=== PATIENT | female | born 1955 | race African-American/Black ===

== ENCOUNTER 2019-03-04 21:41 | Inpatient (IN) | payer MEDICAID ==
[~2019-03-04] VITALS: Ht 177.8 cm; Wt 145.1 kg
[~2019-03-04 21:41] MED LIST: ALBU2.5V13 IH; ALLO100T PO; AMLO5TAB4 PO; BACI500P7 TP; CYCL5TAB PO; FURO40TA5 PO; METH2.5T PO; METO25TA6 PO; OMEP40CA34 PO; OXYB5TAB11 PO; PRAV40TA58 PO; TRAM50TA3 PO; amiodarone hcl PO
[2019-03-04] MEDS ORDERED: IPRATROPIUM BROMIDE (0.02%) 0.5MG/2.5ML NEB HHN STA (22:19)
[2019-03-04] MEDS ORDERED: ALBUTEROL (0.083%) 2.5MG/3ML NEB HHN STA (22:19)
[2019-03-04] MEDS ORDERED: FUROSEMIDE 40MG/4ML VIAL IVP ONE (22:30)
[2019-03-04 23:16] LABS: BASOPHILS % 0.5 % (0.0-2.0); EOSINOPHILS % 2.2 % (0.0-5.0); HEMATOCRIT. 27.1 % (36.0-48.0); HEMOGLOBIN. 8.9 g/dL (12.0-16.0); LYMPHOCYTES % 23.1 % (20.0-50.0); MEAN CORPUSCULAR HEMOGLOBIN 28.5 pg (28.0-32.0); MEAN CORPUSCULAR VOLUME 86.8 fL (81.0-99.0); MEAN PLATELET VOLUME 6.9 fl (7.4-10.4); MONOCYTES % 6.6 % (2.0-8.0); NEUTROPHILS % 67.6 % (40.0-76.0); PLATELET 188 x1000/uL (130-400); RED BLOOD CELL COUNT 3.12 mill/uL (4.2-5.4); RED CELL DISTRIBUTION WIDTH 16.3 % (11.6-14.6)
[2019-03-04 23:17] LABS: CHLORIDE 100 mEq/L (98-107)
[2019-03-04 23:48] LABS: CLARITY URINE CLEAR (CLEAR); COLOR URINE YELLOW (YELLOW); KETONES URINE NEGATIVE (NEGATIVE); LEUKOCYTE ESTERASE URINE NEGATIVE (NEGATIVE); NITRITE URINE NEGATIVE (NEGATIVE); OCCULT BLOOD URINE NEGATIVE (NEGATIVE); PROTEIN URINE NEGATIVE (NEGATIVE); SPECIFIC GRAVITY URINE 1.009 (1.005-1.030); UROBILINOGEN URINE 0.2 E.U./dL (0.2-1.0)
[2019-03-05 02:50] VITALS: BP 125/47
[2019-03-05] MEDS ORDERED: METO5TAB69 MT (04:51)
[2019-03-05] MEDS ORDERED: CLOP75TA33 MT (04:51)
[2019-03-05] MEDS ORDERED: BACL-141 MT (04:51)
[2019-03-05] MEDS ORDERED: CARV6.2548 MT (04:51)
[2019-03-05] MEDS ORDERED: CIME400T MT (04:51)
[2019-03-05] MEDS ORDERED: CLONIDINE 0.1MG TABLET PO PRN ×2 (06:00→06:15)
[2019-03-05] MEDS ORDERED: ONDANSETRON HCL 4MG/2ML INJ IV PRN (06:00)
[2019-03-05 08:00] VITALS: BP 112/55
[2019-03-05] MEDS ORDERED: FUROSEMIDE 40MG/4ML VIAL IVP SCH (09:00)
[2019-03-05] MEDS ORDERED: CIMETIDINE MT SCH (09:00)
[2019-03-05] MEDS: AMLODIPINE 5MG TABLET PO SCH (09:00)
[2019-03-05] MEDS: CARVEDILOL 6.25 MG TABLET PO SCH ×2 (09:00→21:00)
[2019-03-05] MEDS ORDERED: METOLAZONE MT SCH (09:00)
[2019-03-05] MEDS: OXYBUTYNIN CHLORIDE 5MG TABLET PO SCH (09:24)
[2019-03-05] MEDS: BACLOFEN 10MG TABLET PO SCH (09:24)
[2019-03-05] MEDS: FAMOTIDINE 20MG TABLET PO SCH (09:24)
[2019-03-05] MEDS: CLOPIDOGREL 75MG TABLET PO SCH (09:24)
[2019-03-05 10:48] LABS: BASOPHILS % 0.5 % (0.0-2.0); EOSINOPHILS % 2.1 % (0.0-5.0); HEMATOCRIT. 27.3 % (36.0-48.0); HEMOGLOBIN. 8.8 g/dL (12.0-16.0); LYMPHOCYTES % 23.3 % (20.0-50.0); MEAN CORPUSCULAR HEMOGLOBIN 28.2 pg (28.0-32.0); MEAN CORPUSCULAR VOLUME 87.5 fL (81.0-99.0); NEUTROPHILS % 69.1 % (40.0-76.0); PLATELET 159 x1000/uL (130-400); RED BLOOD CELL COUNT 3.12 mill/uL (4.2-5.4); RED CELL DISTRIBUTION WIDTH 15.9 % (11.6-14.6)
[2019-03-05 11:24] LABS: CREATINE KINASE MB FRACTION 1.2 ng/mL (0.5-3.6)
[2019-03-05 12:00] VITALS: BP 113/52
[2019-03-05] MEDS: ACETAMINOPHEN 325MG TABLET PO PRN ×2 (12:10→18:17)
[2019-03-05 16:00] VITALS: BP 105/55
[2019-03-05] MEDS: ALBUTEROL (0.083%) 2.5MG/3ML NEB HHN SCH ×2 (17:42→19:46)
[2019-03-05 20:00] VITALS: BP 110/44
[2019-03-05] MEDS ORDERED: EPOETIN ALFA 10000UNITS/ML VIAL SUBCUT NR (21:00)
[2019-03-05] MEDS: FUROSEMIDE 40MG/4ML VIAL IVP SCH (22:33)
[2019-03-06] VITALS: BP 109/51
[2019-03-06] MEDS: HYDROCODONE/ACETAMINOPHEN 5/325MG TABLET PO PRN ×3 (02:31→21:41)
[2019-03-06 04:00] VITALS: BP 104/49
[2019-03-06 06:42] LABS: BASOPHILS % 0.2 % (0.0-2.0); EOSINOPHILS % 2.3 % (0.0-5.0); HEMATOCRIT. 25.1 % (36.0-48.0); HEMOGLOBIN. 8.5 g/dL (12.0-16.0); LYMPHOCYTES % 29.9 % (20.0-50.0); MEAN CORPUSCULAR HEMOGLOBIN 29.3 pg (28.0-32.0); MEAN CORPUSCULAR VOLUME 86.5 fL (81.0-99.0); MEAN PLATELET VOLUME 7.4 fl (7.4-10.4); MONOCYTES % 6.2 % (2.0-8.0); NEUTROPHILS % 61.4 % (40.0-76.0); PLATELET 165 x1000/uL (130-400); RED BLOOD CELL COUNT 2.91 mill/uL (4.2-5.4); RED CELL DISTRIBUTION WIDTH 15.4 % (11.6-14.6)
[2019-03-06 08:00] VITALS: BP 105/49
[2019-03-06] MEDS: CARVEDILOL 6.25 MG TABLET PO SCH ×2 (09:00→21:00)
[2019-03-06] MEDS: AMLODIPINE 5MG TABLET PO SCH (09:00)
[2019-03-06] MEDS: ALBUTEROL (0.083%) 2.5MG/3ML NEB HHN SCH ×5 (09:14→21:00)
[2019-03-06] MEDS: FUROSEMIDE 40MG/4ML VIAL IVP SCH ×2 (09:53→21:32)
[2019-03-06] MEDS: FAMOTIDINE 20MG TABLET PO SCH (09:54)
[2019-03-06] MEDS: BACLOFEN 10MG TABLET PO SCH (09:54)
[2019-03-06] MEDS: OXYBUTYNIN CHLORIDE 5MG TABLET PO SCH (09:54)
[2019-03-06] MEDS: CLOPIDOGREL 75MG TABLET PO SCH (09:54)
[2019-03-06] MEDS: METOLAZONE 5MG TABLET PO SCH (09:54)
[2019-03-06 12:00] VITALS: BP 103/52
[2019-03-06] MEDS: AMOXICILLIN/POTASSIUM CLAVULANATE 500/125MG TAB PO SCH (15:16)
[2019-03-06 16:00] VITALS: BP 103/52
[2019-03-06 20:00] VITALS: BP 94/46
[2019-03-06] MEDS: FLUTICASONE PROPIONATE 50MCG/SPRAY BOTTLE BOTHNSTRLS SCH (21:32)
[2019-03-07] VITALS: BP 108/54
[2019-03-07 04:00] VITALS: BP 113/49
[2019-03-07] MEDS: HYDROCODONE/ACETAMINOPHEN 5/325MG TABLET PO PRN ×2 (06:02→21:02)
[2019-03-07 06:49] LABS: BASOPHILS % 0.4 % (0.0-2.0); EOSINOPHILS % 2.7 % (0.0-5.0); HEMATOCRIT. 26.2 % (36.0-48.0); HEMOGLOBIN. 8.6 g/dL (12.0-16.0); LYMPHOCYTES % 27.4 % (20.0-50.0); MEAN CORPUSCULAR HEMOGLOBIN 28.4 pg (28.0-32.0); MEAN CORPUSCULAR VOLUME 86.6 fL (81.0-99.0); MONOCYTES % 6.8 % (2.0-8.0); NEUTROPHILS % 62.7 % (40.0-76.0); PLATELET 175 x1000/uL (130-400); RED BLOOD CELL COUNT 3.02 mill/uL (4.2-5.4); RED CELL DISTRIBUTION WIDTH 15.6 % (11.6-14.6)
[2019-03-07 08:00] VITALS: BP 104/43
[2019-03-07] MEDS: AMLODIPINE 5MG TABLET PO SCH (09:00)
[2019-03-07] MEDS: CARVEDILOL 6.25 MG TABLET PO SCH ×2 (09:00→21:00)
[2019-03-07] MEDS: ALBUTEROL (0.083%) 2.5MG/3ML NEB HHN SCH ×3 (09:16→21:03)
[2019-03-07] MEDS: CLOPIDOGREL 75MG TABLET PO SCH (09:30)
[2019-03-07] MEDS: FAMOTIDINE 20MG TABLET PO SCH (09:30)
[2019-03-07] MEDS: OXYBUTYNIN CHLORIDE 5MG TABLET PO SCH (09:31)
[2019-03-07] MEDS: FUROSEMIDE 40MG/4ML VIAL IVP SCH ×2 (09:32→21:02)
[2019-03-07] MEDS: AMOXICILLIN/POTASSIUM CLAVULANATE 500/125MG TAB PO SCH (09:32)
[2019-03-07 10:45] LABS: PHOSPHORUS 5.2 mg/dL (2.5-4.9)
[2019-03-07 12:22] VITALS: BP 110/45
[2019-03-07] MEDS: FLUTICASONE PROPIONATE 50MCG/SPRAY BOTTLE BOTHNSTRLS SCH ×2 (13:58→21:07)
[2019-03-07] MEDS: ACETAMINOPHEN 325MG TABLET PO PRN (15:18)
[2019-03-07 16:52] VITALS: BP 102/43
[2019-03-07 20:00] VITALS: BP 113/58
[2019-03-08] VITALS (7 sets, daily range): BP systolic 108–141; BP diastolic 43–65
[2019-03-08] MEDS: HYDROCODONE/ACETAMINOPHEN 5/325MG TABLET PO PRN ×3 (04:58→23:01)
[2019-03-08 08:12] LABS: BASOPHILS % 0.4 % (0.0-2.0); EOSINOPHILS % 2.5 % (0.0-5.0); HEMATOCRIT. 28.1 % (36.0-48.0); HEMOGLOBIN. 9.1 g/dL (12.0-16.0); LYMPHOCYTES % 25.7 % (20.0-50.0); MEAN CORPUSCULAR HEMOGLOBIN 28.1 pg (28.0-32.0); MEAN CORPUSCULAR VOLUME 86.6 fL (81.0-99.0); MEAN PLATELET VOLUME 7.3 fl (7.4-10.4); NEUTROPHILS % 65.4 % (40.0-76.0); PLATELET 195 x1000/uL (130-400); RED BLOOD CELL COUNT 3.25 mill/uL (4.2-5.4); RED CELL DISTRIBUTION WIDTH 15.9 % (11.6-14.6)
[2019-03-08] MEDS: ALBUTEROL (0.083%) 2.5MG/3ML NEB HHN SCH ×4 (08:35→20:39)
[2019-03-08] MEDS: FUROSEMIDE 40MG/4ML VIAL IVP SCH (08:55)
[2019-03-08] MEDS: METOLAZONE 5MG TABLET PO SCH (08:56)
[2019-03-08] MEDS: AMOXICILLIN/POTASSIUM CLAVULANATE 500/125MG TAB PO SCH (08:56)
[2019-03-08] MEDS: CLOPIDOGREL 75MG TABLET PO SCH (08:59)
[2019-03-08] MEDS: CARVEDILOL 6.25 MG TABLET PO SCH ×2 (08:59→21:04)
[2019-03-08] MEDS: OXYBUTYNIN CHLORIDE 5MG TABLET PO SCH (08:59)
[2019-03-08] MEDS: AMLODIPINE 5MG TABLET PO SCH (09:00)
[2019-03-08] MEDS: FLUTICASONE PROPIONATE 50MCG/SPRAY BOTTLE BOTHNSTRLS SCH ×2 (09:00→21:04)
[2019-03-08] MEDS: FAMOTIDINE 20MG TABLET PO SCH (09:04)
[2019-03-08] MEDS: FUROSEMIDE 40MG TABLET PO SCH (18:16)
[2019-03-09 00:08] VITALS: BP 115/52
[2019-03-09 04:00] VITALS: BP 104/50
[2019-03-09 05:55] LABS: PHOSPHORUS 5.4 mg/dL (2.5-4.9)
[2019-03-09 06:15] LABS: BASOPHILS % 0.3 % (0.0-2.0); EOSINOPHILS % 2.7 % (0.0-5.0); HEMATOCRIT. 28.9 % (36.0-48.0); HEMOGLOBIN. 9.4 g/dL (12.0-16.0); LYMPHOCYTES % 26.1 % (20.0-50.0); MEAN CORPUSCULAR HEMOGLOBIN 28.3 pg (28.0-32.0); MEAN PLATELET VOLUME 7.5 fl (7.4-10.4); NEUTROPHILS % 63.9 % (40.0-76.0); PLATELET 199 x1000/uL (130-400); RED BLOOD CELL COUNT 3.32 mill/uL (4.2-5.4); RED CELL DISTRIBUTION WIDTH 15.7 % (11.6-14.6)
[2019-03-09 08:00] VITALS: BP 100/53
[2019-03-09] MEDS: CARVEDILOL 6.25 MG TABLET PO SCH (09:00)
[2019-03-09] MEDS: AMLODIPINE 5MG TABLET PO SCH (09:00)
[2019-03-09] MEDS: OXYBUTYNIN CHLORIDE 5MG TABLET PO SCH (09:35)
[2019-03-09] MEDS: FLUTICASONE PROPIONATE 50MCG/SPRAY BOTTLE BOTHNSTRLS SCH (09:35)
[2019-03-09] MEDS: METOLAZONE 5MG TABLET PO SCH (09:35)
[2019-03-09] MEDS: CLOPIDOGREL 75MG TABLET PO SCH (09:35)
[2019-03-09] MEDS: AMOXICILLIN/POTASSIUM CLAVULANATE 500/125MG TAB PO SCH (09:35)
[2019-03-09] MEDS: FUROSEMIDE 40MG TABLET PO SCH (09:36)
[2019-03-09] MEDS: FAMOTIDINE 20MG TABLET PO SCH (09:36)
[2019-03-09 10:18] VITALS: BP 100/53
[2019-03-09] MEDS: HYDROCODONE/ACETAMINOPHEN 5/325MG TABLET PO PRN (10:18)
[2019-03-09] MEDS: ALBUTEROL (0.083%) 2.5MG/3ML NEB HHN SCH (10:35)
== END 2019-03-09 10:41 | disposition home or self-care (01) | DRG 133 ==
LOC: ER 21:41 → 7WST 23:52 → EDBEDREQ 23:57 → EDBEDREQTM 23:57 → ENRESERV 03-05 01:38
PROVIDERS: ADMIT Internal Medicine; ATTEND Internal Medicine
DX: J96.91 Respiratory failure, unspecified with hypoxia (principal); I13.2 Hypertensive heart and chronic kidney disease with heart failure and with stage 5 chronic kidney disease, or end stage renal disease; N17.9 Acute kidney failure, unspecified; I27.20 Pulmonary hypertension, unspecified; N18.5 Chronic kidney disease, stage 5; Z68.42 Body mass index [BMI] 45.0-49.9, adult; I50.33 Acute on chronic diastolic (congestive) heart failure; R07.9 Chest pain, unspecified; R51 Headache; M06.9 Rheumatoid arthritis, unspecified; I25.10 Atherosclerotic heart disease of native coronary artery without angina pectoris; J45.909 Unspecified asthma, uncomplicated; E78.5 Hyperlipidemia, unspecified; J32.9 Chronic sinusitis, unspecified; Z95.2 Presence of prosthetic heart valve; D64.9 Anemia, unspecified; Z86.718 Personal history of other venous thrombosis and embolism; I25.2 Old myocardial infarction; Z95.828 Presence of other vascular implants and grafts; Z82.49 Family history of ischemic heart disease and other diseases of the circulatory system; Z90.49 Acquired absence of other specified parts of digestive tract; Z88.5 Allergy status to narcotic agent; Z79.899 Other long term (current) drug therapy
CPT/HCPCS: 36415; 71045; 76770; 80048; 81003; 82270; 82550; 82553; 83735; 83880; 84100; 84484; 93005; 94640; 94644; 96374; 97162; 99285; J0885; J1940; J7611

== ENCOUNTER 2019-04-01 21:10 | Inpatient (IN) | payer MEDICAID ==
[~2019-04-01] VITALS: Ht 190.5 cm; Wt 139.3 kg
[~2019-04-01 21:10] MED LIST changes: -ALLO100T PO; -BACI500P7 TP; +BACL-141 MT; +CARV6.2548 MT; +CIME400T MT; +CLOP75TA33 MT; -CYCL5TAB PO; -METH2.5T PO; -METO25TA6 PO; +METO5TAB69 MT; -OMEP40CA34 PO; -PRAV40TA58 PO; -TRAM50TA3 PO; -amiodarone hcl PO
[2019-04-01 22:54] LABS: BASOPHILS % 0.2 % (0.0-2.0); EOSINOPHILS % 1.3 % (0.0-5.0); HEMATOCRIT. 30.7 % (36.0-48.0); HEMOGLOBIN. 10.1 g/dL (12.0-16.0); LYMPHOCYTES % 18.5 % (20.0-50.0); MEAN CORPUSCULAR HEMOGLOBIN 28.7 pg (28.0-32.0); MEAN CORPUSCULAR VOLUME 87.2 fL (81.0-99.0); MEAN PLATELET VOLUME 6.7 fl (7.4-10.4); MONOCYTES % 5.7 % (2.0-8.0); NEUTROPHILS % 74.3 % (40.0-76.0); PLATELET 168 x1000/uL (130-400); RED BLOOD CELL COUNT 3.52 mill/uL (4.2-5.4); RED CELL DISTRIBUTION WIDTH 14.1 % (11.6-14.6)
[2019-04-01 23:19] LABS: PROTHROMBIN TIME 10.7 sec (9.6-11.0)
[2019-04-02 00:22] LABS: CHLORIDE 98 mEq/L (98-107)
[2019-04-02] MEDS ORDERED: ACETAMINOPHEN 500MG TABLET PO ONE (01:30)
[2019-04-02 07:30] VITALS: BP_SYST 112; BP_SYST 118; BP_DIAS 62; BP_DIAS 63
[2019-04-02] MEDS: HYDROCODONE/ACETAMINOPHEN 5/325MG TABLET PO PRN ×2 (10:11→21:13)
[2019-04-02] MEDS ORDERED: POTASSIUM CHLORIDE 20MEQ TABLET SR PO NR (10:45)
[2019-04-02] MEDS ORDERED: LIDOCAINE HCL 1% 20ML VIAL (Pyxis) INJ ONE (10:56)
[2019-04-02 12:00] VITALS: BP 118/55
[2019-04-02 16:00] VITALS: BP 120/64
[2019-04-02] MEDS ORDERED: ENOXAPARIN 30MG/0.3ML SYR SUBCUT SCH (16:00)
[2019-04-02 16:17] LABS: HEPATITIS B SURFACE AB < 3.1 mIU/mL
[2019-04-02 16:27] LABS: HEPATITIS B SURFACE ANTIGEN NEGATIVE
[2019-04-02 16:43] LABS: CLARITY URINE CLEAR (CLEAR); COLOR URINE YELLOW (YELLOW); KETONES URINE NEGATIVE (NEGATIVE); LEUKOCYTE ESTERASE URINE 1+ (NEGATIVE); NITRITE URINE NEGATIVE (NEGATIVE); OCCULT BLOOD URINE 1+ (NEGATIVE); PROTEIN URINE NEGATIVE (NEGATIVE); SPECIFIC GRAVITY URINE 1.009 (1.005-1.030); UROBILINOGEN URINE 0.2 E.U./dL (0.2-1.0)
[2019-04-02 16:57] LABS: HEPATITIS A AB IGM NEGATIVE (NEGATIVE)
[2019-04-02] MEDS: ONDANSETRON HCL 4MG/2ML INJ IV PRN (17:30)
[2019-04-02 20:00] VITALS: BP 116/60
[2019-04-03] VITALS: BP 129/61
[2019-04-03] MEDS: ONDANSETRON HCL 4MG/2ML INJ IV PRN ×3 (00:43→14:43)
[2019-04-03 04:00] VITALS: BP 127/59
[2019-04-03 07:52] LABS: BASOPHILS % 0.5 % (0.0-2.0); EOSINOPHILS % 1.9 % (0.0-5.0); HEMATOCRIT. 31.4 % (36.0-48.0); HEMOGLOBIN. 10.1 g/dL (12.0-16.0); MEAN CORPUSCULAR HEMOGLOBIN 28.7 pg (28.0-32.0); MEAN CORPUSCULAR VOLUME 89.1 fL (81.0-99.0); MEAN PLATELET VOLUME 6.6 fl (7.4-10.4); MONOCYTES % 5.7 % (2.0-8.0); NEUTROPHILS % 63.9 % (40.0-76.0); PLATELET 154 x1000/uL (130-400); RED BLOOD CELL COUNT 3.53 mill/uL (4.2-5.4); RED CELL DISTRIBUTION WIDTH 14.3 % (11.6-14.6)
[2019-04-03 08:00] VITALS: BP 123/91
[2019-04-03 08:50] LABS: PHOSPHORUS 4.7 mg/dL (2.5-4.9)
[2019-04-03 12:00] VITALS: BP 128/58
[2019-04-03 16:00] VITALS: BP 123/84
[2019-04-03 20:00] VITALS: BP 125/86
[2019-04-04] VITALS: BP 122/63
[2019-04-04] MEDS: HYDROCODONE/ACETAMINOPHEN 5/325MG TABLET PO PRN (02:27)
[2019-04-04 04:00] VITALS: BP 115/46
[2019-04-04 07:18] LABS: BASOPHILS % 0.4 % (0.0-2.0); EOSINOPHILS % 1.8 % (0.0-5.0); HEMATOCRIT. 30.7 % (36.0-48.0); HEMOGLOBIN. 9.9 g/dL (12.0-16.0); LYMPHOCYTES % 25.3 % (20.0-50.0); MEAN CORPUSCULAR HEMOGLOBIN 28.9 pg (28.0-32.0); MEAN CORPUSCULAR VOLUME 89.3 fL (81.0-99.0); MEAN PLATELET VOLUME 6.8 fl (7.4-10.4); MONOCYTES % 6.2 % (2.0-8.0); NEUTROPHILS % 66.3 % (40.0-76.0); PLATELET 151 x1000/uL (130-400); RED BLOOD CELL COUNT 3.44 mill/uL (4.2-5.4); RED CELL DISTRIBUTION WIDTH 14.2 % (11.6-14.6)
[2019-04-04 07:36] LABS: PHOSPHORUS 4.7 mg/dL (2.5-4.9)
[2019-04-04 08:00] VITALS: BP 152/72
[2019-04-04 12:00] VITALS: BP 122/69
[2019-04-04] MEDS: ONDANSETRON HCL 4MG/2ML INJ IV PRN (13:31)
[2019-04-04 16:00] VITALS: BP 119/66
[2019-04-04 20:00] VITALS: BP 137/73
[2019-04-04] MEDS ORDERED: LACTULOSE 20G/30ML UDC PO PRN (21:45)
[2019-04-04] MEDS ORDERED: MAGNESIUM/ALUMINUM HYDROXIDE/SIMETHICONE 30ML UDC PO PRN (21:45)
[2019-04-04] MEDS: LEVOFLOXACIN 250MG TABLET PO SCH (22:28)
[2019-04-05] VITALS: BP 119/57
[2019-04-05 04:00] VITALS: BP 118/60
[2019-04-05 07:24] LABS: BASOPHILS % 0.4 % (0.0-2.0); EOSINOPHILS % 1.6 % (0.0-5.0); HEMATOCRIT. 31.8 % (36.0-48.0); HEMOGLOBIN. 10.3 g/dL (12.0-16.0); LYMPHOCYTES % 22.2 % (20.0-50.0); MEAN CORPUSCULAR HEMOGLOBIN 28.6 pg (28.0-32.0); MEAN CORPUSCULAR VOLUME 88.4 fL (81.0-99.0); MEAN PLATELET VOLUME 6.8 fl (7.4-10.4); MONOCYTES % 5.6 % (2.0-8.0); NEUTROPHILS % 70.2 % (40.0-76.0); PLATELET 142 x1000/uL (130-400); RED CELL DISTRIBUTION WIDTH 13.9 % (11.6-14.6)
[2019-04-05 08:00] VITALS: BP 142/76
[2019-04-05] MEDS ORDERED: NITROFURANTOIN 100MG M/M CAPSULE PO SCH (09:00)
[2019-04-05] MEDS: LEVOFLOXACIN 250MG TABLET PO SCH (09:20)
[2019-04-05] MEDS ORDERED: FENTANYL CITRATE/PF 50MCG/ML 2ML VIAL ONE (11:24)
[2019-04-05 12:00] VITALS: BP 156/72
[2019-04-05 16:00] VITALS: BP 149/83
[2019-04-05] MEDS: HYDROCODONE/ACETAMINOPHEN 5/325MG TABLET PO PRN (20:28)
[2019-04-06 00:50] VITALS: BP 123/65
[2019-04-06 04:00] VITALS: BP 138/77
[2019-04-06 06:22] LABS: BASOPHILS % 0.2 % (0.0-2.0); EOSINOPHILS % 1.2 % (0.0-5.0); HEMATOCRIT. 31.8 % (36.0-48.0); HEMOGLOBIN. 10.3 g/dL (12.0-16.0); LYMPHOCYTES % 14.7 % (20.0-50.0); MEAN CORPUSCULAR HEMOGLOBIN 28.6 pg (28.0-32.0); MEAN CORPUSCULAR VOLUME 88.4 fL (81.0-99.0); MEAN PLATELET VOLUME 6.9 fl (7.4-10.4); MONOCYTES % 4.5 % (2.0-8.0); NEUTROPHILS % 79.4 % (40.0-76.0); PLATELET 135 x1000/uL (130-400); RED BLOOD CELL COUNT 3.59 mill/uL (4.2-5.4); RED CELL DISTRIBUTION WIDTH 14.1 % (11.6-14.6)
[2019-04-06 06:38] LABS: PHOSPHORUS 4.5 mg/dL (2.5-4.9)
[2019-04-06 08:00] VITALS: BP 136/67
[2019-04-06] MEDS: LEVOFLOXACIN 250MG TABLET PO SCH (08:27)
[2019-04-06] MEDS ORDERED: SODIUM BICARBONATE 4% (2.4MEQ) 5ML VIAL IV ONE (08:28)
[2019-04-06] MEDS ORDERED: LIDOCAINE HCL 1% 20ML VIAL (Pyxis) INJ ONE (08:28)
[2019-04-06] MEDS ORDERED: PROPOFOL 200MG/20ML VIAL IV ONE (09:33)
[2019-04-06] MEDS ORDERED: MIDAZOLAM HCL 2 MG/2 ML VIAL ONE (09:33)
[2019-04-06] MEDS ORDERED: FENTANYL CITRATE/PF 50MCG/ML 2ML VIAL ONE ×2 (09:33→09:49)
[2019-04-06] MEDS ORDERED: MEPERIDINE HCL/PF 25MG/ML CPJ IV PRN (09:45)
[2019-04-06] MEDS ORDERED: LABETALOL 5MG/ML SYR 20 MG/4 ML SYRINGE IV PRN (09:45)
[2019-04-06] MEDS ORDERED: ONDANSETRON HCL 4MG/2ML INJ IV PRN (09:45)
[2019-04-06] MEDS ORDERED: HYDROMORPHONE HCL/PF 2MG/ML CPJ IV PRN (09:45)
[2019-04-06] MEDS ORDERED: DEXAMETHASONE 4MG/ML 1ML VIAL ONE (09:49)
[2019-04-06 12:00] VITALS: BP 119/63
[2019-04-06 16:00] VITALS: BP 139/63
[2019-04-06 20:00] VITALS: BP 140/71
[2019-04-07] VITALS: BP 122/78
[2019-04-07] MEDS: HYDROCODONE/ACETAMINOPHEN 5/325MG TABLET PO PRN (00:25)
[2019-04-07 04:00] VITALS: BP 140/86
[2019-04-07] MEDS: HALOPERIDOL LACTATE 5MG/ML VIAL IM PRN (05:35)
[2019-04-07 07:29] LABS: BASOPHILS % 0.4 % (0.0-2.0); EOSINOPHILS % 0.7 % (0.0-5.0); HEMATOCRIT. 32.1 % (36.0-48.0); HEMOGLOBIN. 10.5 g/dL (12.0-16.0); LYMPHOCYTES % 9.4 % (20.0-50.0); MEAN CORPUSCULAR HEMOGLOBIN 28.9 pg (28.0-32.0); MEAN CORPUSCULAR VOLUME 87.9 fL (81.0-99.0); MEAN PLATELET VOLUME 7.3 fl (7.4-10.4); MONOCYTES % 4.8 % (2.0-8.0); NEUTROPHILS % 84.7 % (40.0-76.0); PLATELET 134 x1000/uL (130-400); RED BLOOD CELL COUNT 3.65 mill/uL (4.2-5.4); RED CELL DISTRIBUTION WIDTH 14.2 % (11.6-14.6)
[2019-04-07 07:35] LABS: PHOSPHORUS 3.3 mg/dL (2.5-4.9)
[2019-04-07 08:00] VITALS: BP 141/76
[2019-04-07] MEDS: LEVOFLOXACIN 250MG TABLET PO SCH (08:35)
[2019-04-07] MEDS: DOCUSATE SODIUM 100MG CAPSULE PO SCH ×2 (08:35→17:07)
[2019-04-07 12:00] VITALS: BP 122/77
[2019-04-07 15:07] LABS: HEPATITIS B SURFACE ANTIGEN NEGATIVE
[2019-04-07 15:37] LABS: HEPATITIS A AB IGM NEGATIVE (NEGATIVE)
[2019-04-07 16:00] VITALS: BP 105/58
[2019-04-07 20:00] VITALS: BP 117/70
[2019-04-08] VITALS: BP 139/70
[2019-04-08] MEDS: ACETAMINOPHEN 325MG TABLET PO PRN ×3 (01:31→20:05)
[2019-04-08 04:00] VITALS: BP 122/69
[2019-04-08 07:51] LABS: BASOPHILS % 0.3 % (0.0-2.0); EOSINOPHILS % 1.2 % (0.0-5.0); HEMATOCRIT. 30.5 % (36.0-48.0); HEMOGLOBIN. 9.9 g/dL (12.0-16.0); LYMPHOCYTES % 21.2 % (20.0-50.0); MEAN CORPUSCULAR HEMOGLOBIN 28.7 pg (28.0-32.0); MEAN CORPUSCULAR VOLUME 88.5 fL (81.0-99.0); MEAN PLATELET VOLUME 7.1 fl (7.4-10.4); MONOCYTES % 6.3 % (2.0-8.0); PLATELET 123 x1000/uL (130-400); RED BLOOD CELL COUNT 3.45 mill/uL (4.2-5.4); RED CELL DISTRIBUTION WIDTH 14.2 % (11.6-14.6)
[2019-04-08 08:05] VITALS: BP 108/66
[2019-04-08 08:25] LABS: PHOSPHORUS 4.6 mg/dL (2.5-4.9)
[2019-04-08] MEDS: DOCUSATE SODIUM 100MG CAPSULE PO SCH ×2 (09:40→17:30)
[2019-04-08] MEDS: LEVOFLOXACIN 250MG TABLET PO SCH (09:40)
[2019-04-08 12:00] VITALS: BP 126/68
[2019-04-08 15:10] LABS: *BARBITURATES SCREEN URINE NEGATIVE (NEGATIVE)
[2019-04-08 15:11] LABS: *BENZODIAZEPINES SCREEN URINE PRESUMTIVE POSITIVE (NEGATIVE); *COCAINE SCREEN URINE NEGATIVE (NEGATIVE); OPIATES URINE SCREEN PRESUMTIVE POSITIVE (NEGATIVE); PHENCYCLIDINE URINE SCREEN NEGATIVE (NEGATIVE)
[2019-04-08 15:12] LABS: *AMPHETAMINES SCREEN URINE NEGATIVE (NEGATIVE); CANNABINOID URINE SCREEN NEGATIVE (NEGATIVE); METHADONE URINE SCREEN NEGATIVE (NEGATIVE)
[2019-04-08 16:00] VITALS: BP 112/63
[2019-04-08] MEDS: HEPARIN 5000 UNITS/ML VIAL SUBCUT SCH ×2 (17:30→20:05)
[2019-04-08 20:00] VITALS: BP 96/56
[2019-04-08] MEDS: ATORVASTATIN CALCIUM 20MG TABLET PO SCH (20:05)
[2019-04-09] VITALS (7 sets, daily range): BP systolic 101–142; BP diastolic 51–62
[2019-04-09] MEDS: HALOPERIDOL LACTATE 5MG/ML VIAL IM PRN (00:09)
[2019-04-09] MEDS: ACETAMINOPHEN 325MG TABLET PO PRN ×3 (02:57→19:47)
[2019-04-09] MEDS: HEPARIN 5000 UNITS/ML VIAL SUBCUT SCH ×3 (05:55→20:49)
[2019-04-09] MEDS: DOCUSATE SODIUM 100MG CAPSULE PO SCH ×2 (09:18→18:45)
[2019-04-09] MEDS: CLOPIDOGREL 75MG TABLET PO SCH (09:18)
[2019-04-09] MEDS: POLYETHYLENE GLYCOL 3350 (17GM) 1 DOSE PACK PO SCH (13:24)
[2019-04-09] MEDS: ATORVASTATIN CALCIUM 20MG TABLET PO SCH (19:47)
[2019-04-10 00:05] VITALS: BP 109/62
[2019-04-10 04:00] VITALS: BP 112/69
[2019-04-10] MEDS: HEPARIN 5000 UNITS/ML VIAL SUBCUT SCH ×2 (05:42→17:10)
[2019-04-10 07:15] LABS: BASOPHILS % 0.5 % (0.0-2.0); EOSINOPHILS % 1.1 % (0.0-5.0); HEMATOCRIT. 30.9 % (36.0-48.0); LYMPHOCYTES % 23.6 % (20.0-50.0); MEAN CORPUSCULAR VOLUME 89.3 fL (81.0-99.0); MEAN PLATELET VOLUME 7.4 fl (7.4-10.4); MONOCYTES % 7.7 % (2.0-8.0); NEUTROPHILS % 67.1 % (40.0-76.0); PLATELET 122 x1000/uL (130-400); RED BLOOD CELL COUNT 3.46 mill/uL (4.2-5.4); RED CELL DISTRIBUTION WIDTH 14.6 % (11.6-14.6)
[2019-04-10 07:42] LABS: PHOSPHORUS 4.5 mg/dL (2.5-4.9)
[2019-04-10 08:00] VITALS: BP 106/63
[2019-04-10] MEDS: CLOPIDOGREL 75MG TABLET PO SCH (09:39)
[2019-04-10] MEDS: POLYETHYLENE GLYCOL 3350 (17GM) 1 DOSE PACK PO SCH (09:39)
[2019-04-10] MEDS: DOCUSATE SODIUM 100MG CAPSULE PO SCH ×2 (09:39→17:09)
[2019-04-10] MEDS ORDERED: NA PHOS,M-B/NA PHOS,DI-BA ENEMA 118ML PR PRN (10:15)
[2019-04-10] MEDS: ACETAMINOPHEN 325MG TABLET PO PRN ×2 (10:57→17:09)
[2019-04-10 12:00] VITALS: BP 121/70
[2019-04-10 16:00] VITALS: BP 103/62
[2019-04-10 20:00] VITALS: BP 111/63
[2019-04-10] MEDS: ATORVASTATIN CALCIUM 20MG TABLET PO SCH (20:43)
[2019-04-11] VITALS: BP 110/68
[2019-04-11] MEDS: HEPARIN 5000 UNITS/ML VIAL SUBCUT SCH ×3 (01:57→21:53)
[2019-04-11] MEDS: ACETAMINOPHEN 325MG TABLET PO PRN ×3 (01:57→17:51)
[2019-04-11 04:00] VITALS: BP 116/64
[2019-04-11 06:51] LABS: PHOSPHORUS 4.4 mg/dL (2.5-4.9)
[2019-04-11 07:08] LABS: BASOPHILS % 0.4 % (0.0-2.0); EOSINOPHILS % 1.5 % (0.0-5.0); HEMATOCRIT. 32.9 % (36.0-48.0); HEMOGLOBIN. 10.7 g/dL (12.0-16.0); LYMPHOCYTES % 19.7 % (20.0-50.0); MEAN CORPUSCULAR HEMOGLOBIN 28.7 pg (28.0-32.0); MEAN CORPUSCULAR VOLUME 88.1 fL (81.0-99.0); MEAN PLATELET VOLUME 7.5 fl (7.4-10.4); MONOCYTES % 8.1 % (2.0-8.0); NEUTROPHILS % 70.3 % (40.0-76.0); PLATELET 125 x1000/uL (130-400); RED BLOOD CELL COUNT 3.74 mill/uL (4.2-5.4); RED CELL DISTRIBUTION WIDTH 14.2 % (11.6-14.6)
[2019-04-11 08:00] VITALS: BP 132/72
[2019-04-11] MEDS: POLYETHYLENE GLYCOL 3350 (17GM) 1 DOSE PACK PO SCH (08:22)
[2019-04-11] MEDS: DOCUSATE SODIUM 100MG CAPSULE PO SCH ×2 (08:22→17:00)
[2019-04-11] MEDS: CLOPIDOGREL 75MG TABLET PO SCH (08:22)
[2019-04-11 12:00] VITALS: BP 120/67
[2019-04-11 16:00] VITALS: BP 155/60
[2019-04-11 20:00] VITALS: BP 102/61
[2019-04-11] MEDS ORDERED: BACLOFEN 10MG TABLET PO NR (20:15)
[2019-04-11] MEDS: ATORVASTATIN CALCIUM 20MG TABLET PO SCH (21:07)
[2019-04-12] VITALS (8 sets, daily range): BP systolic 102–165; BP diastolic 54–79
[2019-04-12] MEDS: ACETAMINOPHEN 325MG TABLET PO PRN ×2 (01:52→19:05)
[2019-04-12] MEDS: HEPARIN 5000 UNITS/ML VIAL SUBCUT SCH ×3 (05:15→21:41)
[2019-04-12 06:54] LABS: BASOPHILS % 0.6 % (0.0-2.0); EOSINOPHILS % 1.7 % (0.0-5.0); HEMATOCRIT. 35.6 % (36.0-48.0); HEMOGLOBIN. 11.6 g/dL (12.0-16.0); LYMPHOCYTES % 23.9 % (20.0-50.0); MEAN CORPUSCULAR HEMOGLOBIN 28.8 pg (28.0-32.0); MEAN CORPUSCULAR VOLUME 88.5 fL (81.0-99.0); MEAN PLATELET VOLUME 7.7 fl (7.4-10.4); MONOCYTES % 10.4 % (2.0-8.0); NEUTROPHILS % 63.4 % (40.0-76.0); PLATELET 116 x1000/uL (130-400); RED BLOOD CELL COUNT 4.02 mill/uL (4.2-5.4); RED CELL DISTRIBUTION WIDTH 14.5 % (11.6-14.6)
[2019-04-12] MEDS: CLOPIDOGREL 75MG TABLET PO SCH (08:38)
[2019-04-12] MEDS: DOCUSATE SODIUM 100MG CAPSULE PO SCH ×2 (08:38→17:06)
[2019-04-12] MEDS: POLYETHYLENE GLYCOL 3350 (17GM) 1 DOSE PACK PO SCH (08:39)
[2019-04-12 08:42] LABS: PHOSPHORUS 4.3 mg/dL (2.5-4.9)
[2019-04-12] MEDS ORDERED: LACTULOSE 20G/30ML UDC PO PRN (11:45)
[2019-04-12] MEDS: DEXAMETHASONE 4MG/ML 1ML VIAL IV SCH ×2 (12:03→17:06)
[2019-04-12] MEDS: HYDROCODONE/ACETAMINOPHEN 5/325MG TABLET PO PRN ×2 (14:29→21:40)
[2019-04-12] MEDS ORDERED: CLOP75TA15 PO (18:05)
[2019-04-12] MEDS ORDERED: HYDR-4001 PO (18:05)
[2019-04-12] MEDS ORDERED: MYL30 PO (18:05)
[2019-04-12] MEDS ORDERED: ATOR20TA PO (18:05)
[2019-04-12] MEDS ORDERED: POLY17PO3 PO (18:05)
[2019-04-12] MEDS: ATORVASTATIN CALCIUM 20MG TABLET PO SCH (21:40)
[2019-04-13] VITALS: BP 109/63
[2019-04-13] MEDS: DEXAMETHASONE 4MG/ML 1ML VIAL IV SCH ×3 (02:29→12:34)
[2019-04-13 04:00] VITALS: BP 116/60
[2019-04-13] MEDS: HEPARIN 5000 UNITS/ML VIAL SUBCUT SCH ×2 (06:12→12:34)
[2019-04-13] MEDS: HYDROCODONE/ACETAMINOPHEN 5/325MG TABLET PO PRN (06:12)
[2019-04-13 07:50] LABS: BASOPHILS % 0.3 % (0.0-2.0); EOSINOPHILS % 0.1 % (0.0-5.0); HEMATOCRIT. 30.7 % (36.0-48.0); LYMPHOCYTES % 25.5 % (20.0-50.0); MEAN CORPUSCULAR HEMOGLOBIN 28.5 pg (28.0-32.0); MEAN CORPUSCULAR VOLUME 87.9 fL (81.0-99.0); MONOCYTES % 10.1 % (2.0-8.0); PLATELET 113 x1000/uL (130-400); RED BLOOD CELL COUNT 3.49 mill/uL (4.2-5.4); RED CELL DISTRIBUTION WIDTH 14.1 % (11.6-14.6)
[2019-04-13 08:00] VITALS: BP 107/63
[2019-04-13 08:19] LABS: PHOSPHORUS 4.8 mg/dL (2.5-4.9)
[2019-04-13] MEDS: DOCUSATE SODIUM 100MG CAPSULE PO SCH (10:18)
[2019-04-13] MEDS: CLOPIDOGREL 75MG TABLET PO SCH (10:18)
[2019-04-13] MEDS: POLYETHYLENE GLYCOL 3350 (17GM) 1 DOSE PACK PO SCH (10:18)
[2019-04-13 12:00] VITALS: BP 102/61
[2019-04-13] MEDS: ACETAMINOPHEN 325MG TABLET PO PRN (12:33)
== END 2019-04-13 15:35 | disposition home or self-care (01) | DRG 194 ==
LOC: ER 21:10 → EDBEDREQTM 04-02 01:38 → EDBEDREQ 04-02 01:38 → ENRESERV 04-02 07:05 → 7WST 04-02 08:15
PROVIDERS: ADMIT Internal Medicine; ATTEND Internal Medicine
PROC: 5A1D70Z Performance of Urinary Filtration, Intermittent, Less than 6 Hours Per Day (ICD-10-PCS; 2019-04-02)
PROC: 02HV33Z Insertion of Infusion Device into Superior Vena Cava, Percutaneous Approach (ICD-10-PCS; 2019-04-02)
PROC: B548ZZA Ultrasonography of Superior Vena Cava, Guidance (ICD-10-PCS; 2019-04-02)
PROC: 5A1D70Z Performance of Urinary Filtration, Intermittent, Less than 6 Hours Per Day (ICD-10-PCS; 2019-04-03)
PROC: 5A1D70Z Performance of Urinary Filtration, Intermittent, Less than 6 Hours Per Day (ICD-10-PCS; 2019-04-05)
PROC: 0JH63XZ Insertion of Tunneled Vascular Access Device into Chest Subcutaneous Tissue and Fascia, Percutaneous Approach (ICD-10-PCS; 2019-04-06)
PROC: 02HV33Z Insertion of Infusion Device into Superior Vena Cava, Percutaneous Approach (ICD-10-PCS; 2019-04-06)
PROC: B5181ZA Fluoroscopy of Superior Vena Cava using Low Osmolar Contrast, Guidance (ICD-10-PCS; 2019-04-06)
PROC: 5A1D70Z Performance of Urinary Filtration, Intermittent, Less than 6 Hours Per Day (ICD-10-PCS; 2019-04-07)
PROC: 5A1D70Z Performance of Urinary Filtration, Intermittent, Less than 6 Hours Per Day (ICD-10-PCS; 2019-04-10)
PROC: 5A1D70Z Performance of Urinary Filtration, Intermittent, Less than 6 Hours Per Day (ICD-10-PCS; principal; 2019-04-12)
DX: I13.2 Hypertensive heart and chronic kidney disease with heart failure and with stage 5 chronic kidney disease, or end stage renal disease (principal); N17.9 Acute kidney failure, unspecified; I27.20 Pulmonary hypertension, unspecified; E87.5 Hyperkalemia; E66.01 Morbid (severe) obesity due to excess calories; G25.3 Myoclonus; G62.9 Polyneuropathy, unspecified; I50.33 Acute on chronic diastolic (congestive) heart failure; N18.6 End stage renal disease; K21.9 Gastro-esophageal reflux disease without esophagitis; M06.9 Rheumatoid arthritis, unspecified; D63.8 Anemia in other chronic diseases classified elsewhere; M47.816 Spondylosis without myelopathy or radiculopathy, lumbar region; M43.16 Spondylolisthesis, lumbar region; K59.00 Constipation, unspecified; F32.9 Major depressive disorder, single episode, unspecified; J45.909 Unspecified asthma, uncomplicated; E78.5 Hyperlipidemia, unspecified; G89.29 Other chronic pain; B96.1 Klebsiella pneumoniae [K. pneumoniae] as the cause of diseases classified elsewhere; R19.7 Diarrhea, unspecified; N39.0 Urinary tract infection, site not specified; I25.10 Atherosclerotic heart disease of native coronary artery without angina pectoris; I25.2 Old myocardial infarction; Z86.718 Personal history of other venous thrombosis and embolism; Z95.2 Presence of prosthetic heart valve; Z95.828 Presence of other vascular implants and grafts; Z99.2 Dependence on renal dialysis; Z90.49 Acquired absence of other specified parts of digestive tract; Z82.49 Family history of ischemic heart disease and other diseases of the circulatory system; Z68.38 Body mass index [BMI] 38.0-38.9, adult; Z88.5 Allergy status to narcotic agent; Z79.899 Other long term (current) drug therapy
CPT/HCPCS: 36415; 36558; 36589; 71045; 72131; 77001; 80048; 80305; 81003; 83735; 83880; 84100; 84484; 86705; 86706; 86709; 86803; 87077; 87186; 87340; 87804; 93005; 93306; 93970; 97161; 97164; 97530; 99285; C1750; C1752; C1769; J1100; J1170; J1630; J1642; J1644; J1650; J2250; J2405; J2704; J3010; J3490; J7040; J7042

== ENCOUNTER 2019-09-01 12:14 | Inpatient (IN) | payer MEDICAID ==
[~2019-09-01] VITALS: Ht 172.7 cm; Wt 142.0 kg
[~2019-09-01 12:14] MED LIST changes: +ATOR20TA PO; +CLOP75TA15 PO; +HYDR-4001 PO; -METO5TAB69 MT; +METO5TAB7 MT; +MYL30 PO; -OXYB5TAB11 PO; +OXYB5TAB16 PO; +POLY17PO3 PO
[2019-09-01 12:44] LABS: BASOPHILS % 0.9 % (0.0-2.0); EOSINOPHILS % 1.5 % (0.0-5.0); HEMATOCRIT. 34.6 % (36.0-48.0); HEMOGLOBIN. 11.2 g/dL (12.0-16.0); LYMPHOCYTES % 19.7 % (20.0-50.0); MEAN CORPUSCULAR VOLUME 95.7 fL (81.0-99.0); MONOCYTES % 5.6 % (2.0-8.0); NEUTROPHILS % 72.3 % (40.0-76.0); PLATELET 120 x1000/uL (130-400); RED BLOOD CELL COUNT 3.61 mill/uL (4.2-5.4); RED CELL DISTRIBUTION WIDTH 15.3 % (11.6-14.6)
[2019-09-01 12:54] LABS: CHLORIDE 104 mEq/L (98-107)
[2019-09-01] MEDS ORDERED: ALBUTEROL (0.083%) 2.5MG/3ML NEB HHN STA (12:55)
[2019-09-01] MEDS ORDERED: NITROGLYCERIN OINT 1GM/INCH UDPKT TD ONE (13:00)
[2019-09-01] MEDS ORDERED: FUROSEMIDE 40MG/4ML VIAL IV ONE (13:00)
[2019-09-01] MEDS ORDERED: ASPIRIN 81MG TABLET PO ONE (13:00)
[2019-09-01] MEDS ORDERED: CLONIDINE 0.1MG TABLET PO PRN (14:45)
[2019-09-01] MEDS ORDERED: ONDANSETRON HCL 4MG/2ML INJ IV PRN (14:45)
[2019-09-01] MEDS ORDERED: IPRATROPIUM/ALBUTEROL 0.5-3(2.5)MG/3ML NEB HHN PRN (14:45)
[2019-09-01 15:23] LABS: PHOSPHORUS 7.2 mg/dL (2.5-4.9)
[2019-09-01] MEDS: MORPHINE SULFATE 2 MG/ML CPJ (NOT FOR IM USE) IV PRN (18:02)
[2019-09-01 19:45] LABS: CLARITY URINE TURBID (CLEAR); COLOR URINE YELLOW (YELLOW); KETONES URINE NEGATIVE (NEGATIVE); LEUKOCYTE ESTERASE URINE 3+ (NEGATIVE); NITRITE URINE NEGATIVE (NEGATIVE); OCCULT BLOOD URINE 2+ (NEGATIVE); PH URINE 5.5 (4.5-8.0); PROTEIN URINE 1+ (NEGATIVE); SPECIFIC GRAVITY URINE 1.012 (1.005-1.030); UROBILINOGEN URINE 0.2 E.U./dL (0.2-1.0)
[2019-09-02] VITALS (7 sets, daily range): BP systolic 90–139; BP diastolic 47–71
[2019-09-02] MEDS ORDERED: TERB5TAB15 PO (05:10)
[2019-09-02] MEDS ORDERED: CALC667T6 PO (05:11)
[2019-09-02] MEDS ORDERED: DOCU250C89 PO (05:11)
[2019-09-02] MEDS ORDERED: BUME1TAB8 PO (05:12)
[2019-09-02 06:18] LABS: BASOPHILS % 0.5 % (0.0-2.0); EOSINOPHILS % 1.6 % (0.0-5.0); HEMATOCRIT. 31.1 % (36.0-48.0); HEMOGLOBIN. 10.2 g/dL (12.0-16.0); LYMPHOCYTES % 22.9 % (20.0-50.0); MONOCYTES % 7.6 % (2.0-8.0); NEUTROPHILS % 67.4 % (40.0-76.0); PLATELET 115 x1000/uL (130-400); RED BLOOD CELL COUNT 3.28 mill/uL (4.2-5.4); RED CELL DISTRIBUTION WIDTH 15.3 % (11.6-14.6)
[2019-09-02 06:50] LABS: CHLORIDE 106 mEq/L (98-107)
[2019-09-02 07:03] LABS: LDL CHOLESTEROL 44 mg/dL (5-100)
[2019-09-02 07:06] LABS: HDL CHOLESTEROL 48 mg/dL (40-59)
[2019-09-02 07:13] LABS: PHOSPHORUS 8.5 mg/dL (2.5-4.9)
[2019-09-02] MEDS: CALCIUM ACETATE 667 MG TABLET PO SCH ×2 (14:01→18:26)
[2019-09-02] MEDS: METOLAZONE 10MG TABLET PO SCH ×2 (14:02→20:56)
[2019-09-02] MEDS: MORPHINE SULFATE 2 MG/ML CPJ (NOT FOR IM USE) IV PRN ×2 (14:15→23:03)
[2019-09-02] MEDS: FUROSEMIDE 100MG/10ML VIAL IVP SCH (18:25)
[2019-09-02] MEDS: CEFTRIAXONE 1 G PREMIX 50 ML IV SCH (18:25)
[2019-09-03] VITALS: BP 106/48
[2019-09-03 04:00] VITALS: BP 102/47
[2019-09-03] MEDS: FUROSEMIDE 100MG/10ML VIAL IVP SCH ×2 (06:16→16:55)
[2019-09-03 08:17] VITALS: BP 103/55
[2019-09-03] MEDS: METOLAZONE 10MG TABLET PO SCH ×2 (09:00→22:28)
[2019-09-03] MEDS: CALCIUM ACETATE 667 MG TABLET PO SCH ×3 (09:11→16:55)
[2019-09-03] MEDS: MORPHINE SULFATE 2 MG/ML CPJ (NOT FOR IM USE) IV PRN ×2 (09:17→19:09)
[2019-09-03] MEDS ORDERED: POLYETHYLENE GLYCOL 3350 (17GM) 1 DOSE PACK PO NR (10:45)
[2019-09-03 11:36] LABS: BASOPHILS % 1.4 % (0.0-2.0); EOSINOPHILS % 1.6 % (0.0-5.0); HEMATOCRIT. 32.2 % (36.0-48.0); HEMOGLOBIN. 10.3 g/dL (12.0-16.0); LYMPHOCYTES % 19.2 % (20.0-50.0); MEAN CORPUSCULAR VOLUME 96.6 fL (81.0-99.0); MEAN PLATELET VOLUME 6.3 fl (7.4-10.4); MONOCYTES % 6.4 % (2.0-8.0); NEUTROPHILS % 71.4 % (40.0-76.0); PLATELET 115 x1000/uL (130-400); RED BLOOD CELL COUNT 3.33 mill/uL (4.2-5.4); RED CELL DISTRIBUTION WIDTH 15.1 % (11.6-14.6)
[2019-09-03] MEDS ORDERED: HEPARIN SODIUM 1,000 UNIT/1ML VIAL IV NR (12:00)
[2019-09-03 12:13] VITALS: BP 122/58
[2019-09-03 16:26] LABS: PHOSPHORUS 4.1 mg/dL (2.5-4.9)
[2019-09-03 16:32] VITALS: BP 96/49
[2019-09-03] MEDS: CEFTRIAXONE 1 G PREMIX 50 ML IV SCH (16:56)
[2019-09-03] MEDS: METOPROLOL TARTRATE 25MG TABLET PO SCH (21:00)
[2019-09-04] MEDS: MORPHINE SULFATE 2 MG/ML CPJ (NOT FOR IM USE) IV PRN ×3 (02:15→22:02)
[2019-09-04 06:00] VITALS: BP 102/59
[2019-09-04 06:42] LABS: BASOPHILS % 0.4 % (0.0-2.0); EOSINOPHILS % 2.3 % (0.0-5.0); HEMATOCRIT. 32.1 % (36.0-48.0); HEMOGLOBIN. 10.3 g/dL (12.0-16.0); LYMPHOCYTES % 24.9 % (20.0-50.0); MEAN CORPUSCULAR VOLUME 96.6 fL (81.0-99.0); MEAN PLATELET VOLUME 6.9 fl (7.4-10.4); MONOCYTES % 6.5 % (2.0-8.0); NEUTROPHILS % 65.9 % (40.0-76.0); PLATELET 114 x1000/uL (130-400); RED BLOOD CELL COUNT 3.33 mill/uL (4.2-5.4)
[2019-09-04] MEDS: FUROSEMIDE 100MG/10ML VIAL IVP SCH (06:59)
[2019-09-04 07:23] LABS: PHOSPHORUS 5.3 mg/dL (2.5-4.9)
[2019-09-04 08:00] VITALS: BP 107/55
[2019-09-04] MEDS: METOPROLOL TARTRATE 25MG TABLET PO SCH ×2 (08:24→22:00)
[2019-09-04] MEDS: CALCIUM ACETATE 667 MG TABLET PO SCH (08:24)
[2019-09-04] MEDS: METOLAZONE 10MG TABLET PO SCH ×2 (08:24→22:01)
[2019-09-04 12:00] VITALS: BP 110/51
[2019-09-04 16:00] VITALS: BP 100/61
[2019-09-04 20:00] VITALS: BP 104/50
[2019-09-04] MEDS: CEFTRIAXONE 1 G PREMIX 50 ML IV SCH (20:18)
[2019-09-04] MEDS: FUROSEMIDE 40MG TABLET PO SCH (21:59)
[2019-09-05] VITALS: BP 96/43
[2019-09-05 04:00] VITALS: BP 109/44
[2019-09-05 07:32] LABS: BASOPHILS % 0.5 % (0.0-2.0); EOSINOPHILS % 3.1 % (0.0-5.0); HEMOGLOBIN. 10.1 g/dL (12.0-16.0); LYMPHOCYTES % 25.4 % (20.0-50.0); MEAN CORPUSCULAR VOLUME 95.7 fL (81.0-99.0); MEAN PLATELET VOLUME 6.8 fl (7.4-10.4); MONOCYTES % 7.9 % (2.0-8.0); NEUTROPHILS % 63.1 % (40.0-76.0); PLATELET 106 x1000/uL (130-400); RED BLOOD CELL COUNT 3.24 mill/uL (4.2-5.4); RED CELL DISTRIBUTION WIDTH 14.8 % (11.6-14.6)
[2019-09-05 08:11] VITALS: BP 86/37
[2019-09-05] MEDS: METOPROLOL TARTRATE 25MG TABLET PO SCH ×2 (09:00→21:00)
[2019-09-05] MEDS: FLUCONAZOLE 100MG TABLET PO SCH (09:15)
[2019-09-05] MEDS: METOLAZONE 10MG TABLET PO SCH ×2 (09:36→21:56)
[2019-09-05] MEDS: FUROSEMIDE 40MG TABLET PO SCH ×2 (09:36→21:55)
[2019-09-05] MEDS: CALCIUM ACETATE 667 MG TABLET PO SCH ×3 (09:37→18:26)
[2019-09-05 12:15] VITALS: BP 99/42
[2019-09-05] MEDS: HYDROCODONE/ACETAMINOPHEN 10/325MG TABLET PO PRN ×2 (12:21→18:27)
[2019-09-05 16:09] VITALS: BP 101/55
[2019-09-05 16:50] LABS: PROTHROMBIN TIME 10.8 sec (9.6-11.0)
[2019-09-05] MEDS: CEFTRIAXONE 1 G PREMIX 50 ML IV SCH (18:26)
[2019-09-05 20:00] VITALS: BP 96/48
[2019-09-06] VITALS (7 sets, daily range): BP systolic 92–139; BP diastolic 47–68
[2019-09-06 07:09] LABS: BASOPHILS % 0.5 % (0.0-2.0); EOSINOPHILS % 3.5 % (0.0-5.0); HEMOGLOBIN. 10.9 g/dL (12.0-16.0); MEAN CORPUSCULAR HEMOGLOBIN 31.1 pg (28.0-32.0); MEAN CORPUSCULAR VOLUME 97.3 fL (81.0-99.0); MEAN PLATELET VOLUME 8.6 fl (7.4-10.4); MONOCYTES % 8.3 % (2.0-8.0); NEUTROPHILS % 62.7 % (40.0-76.0); PLATELET 66 x1000/uL (130-400); RED CELL DISTRIBUTION WIDTH 15.1 % (11.6-14.6)
[2019-09-06 07:39] LABS: PHOSPHORUS 5.3 mg/dL (2.5-4.9)
[2019-09-06] MEDS: METOPROLOL TARTRATE 25MG TABLET PO SCH ×2 (08:47→21:00)
[2019-09-06] MEDS: FUROSEMIDE 40MG TABLET PO SCH ×2 (08:47→21:30)
[2019-09-06] MEDS: CALCIUM ACETATE 667 MG TABLET PO SCH ×3 (08:48→17:05)
[2019-09-06] MEDS: METOLAZONE 10MG TABLET PO SCH (08:48)
[2019-09-06] MEDS: FLUCONAZOLE 100MG TABLET PO SCH (08:48)
[2019-09-06] MEDS: HYDROCODONE/ACETAMINOPHEN 10/325MG TABLET PO PRN ×2 (09:00→21:30)
[2019-09-06 10:05] LABS: PROTHROMBIN TIME 11.1 sec (9.6-11.0)
[2019-09-06] MEDS: CEFTRIAXONE 1 G PREMIX 50 ML IV SCH (17:00)
[2019-09-07] VITALS (7 sets, daily range): BP systolic 94–122; BP diastolic 0–63
[2019-09-07] MEDS ORDERED: METOPROLOL TARTRATE 25MG TABLET PO NR (01:15)
[2019-09-07] MEDS ORDERED: DILTIAZEM HCL 5MG/ML 5ML VIAL IV PRN (02:30)
[2019-09-07] MEDS: AMIODARONE HCL 200 MG TABLET PO SCH ×3 (06:07→21:07)
[2019-09-07 07:27] LABS: BASOPHILS % 0.5 % (0.0-2.0); EOSINOPHILS % 3.1 % (0.0-5.0); HEMATOCRIT. 32.8 % (36.0-48.0); HEMOGLOBIN. 10.5 g/dL (12.0-16.0); LYMPHOCYTES % 25.2 % (20.0-50.0); MEAN CORPUSCULAR HEMOGLOBIN 30.9 pg (28.0-32.0); MEAN CORPUSCULAR VOLUME 96.1 fL (81.0-99.0); MEAN PLATELET VOLUME 7.5 fl (7.4-10.4); MONOCYTES % 8.4 % (2.0-8.0); NEUTROPHILS % 62.8 % (40.0-76.0); PLATELET 88 x1000/uL (130-400); RED BLOOD CELL COUNT 3.41 mill/uL (4.2-5.4); RED CELL DISTRIBUTION WIDTH 14.9 % (11.6-14.6)
[2019-09-07 07:56] LABS: PHOSPHORUS 5.7 mg/dL (2.5-4.9)
[2019-09-07] MEDS: METOLAZONE 2.5MG TABLET PO SCH (09:00)
[2019-09-07] MEDS: FLUCONAZOLE 100MG TABLET PO SCH (09:45)
[2019-09-07] MEDS: FUROSEMIDE 40MG TABLET PO SCH ×2 (09:45→21:00)
[2019-09-07] MEDS: CALCIUM ACETATE 667 MG TABLET PO SCH ×3 (09:45→17:10)
[2019-09-07] MEDS: HYDROCODONE/ACETAMINOPHEN 10/325MG TABLET PO PRN ×2 (09:47→17:10)
[2019-09-07] MEDS: METOPROLOL TARTRATE 25MG TABLET PO SCH (21:00)
[2019-09-08] VITALS (7 sets, daily range): BP systolic 103–137; BP diastolic 41–73
[2019-09-08] MEDS: HYDROCODONE/ACETAMINOPHEN 10/325MG TABLET PO PRN ×3 (00:09→15:22)
[2019-09-08] MEDS: AMIODARONE HCL 200 MG TABLET PO SCH ×3 (06:03→19:06)
[2019-09-08 06:56] LABS: BASOPHILS % 0.9 % (0.0-2.0); EOSINOPHILS % 2.9 % (0.0-5.0); HEMATOCRIT. 31.6 % (36.0-48.0); LYMPHOCYTES % 31.9 % (20.0-50.0); MEAN CORPUSCULAR HEMOGLOBIN 30.7 pg (28.0-32.0); MEAN CORPUSCULAR VOLUME 96.8 fL (81.0-99.0); MEAN PLATELET VOLUME 7.5 fl (7.4-10.4); MONOCYTES % 6.5 % (2.0-8.0); NEUTROPHILS % 57.8 % (40.0-76.0); PLATELET 97 x1000/uL (130-400); RED BLOOD CELL COUNT 3.27 mill/uL (4.2-5.4); RED CELL DISTRIBUTION WIDTH 14.8 % (11.6-14.6)
[2019-09-08] MEDS: METOPROLOL TARTRATE 25MG TABLET PO SCH (08:53)
[2019-09-08] MEDS: METOLAZONE 2.5MG TABLET PO SCH (09:00)
[2019-09-08] MEDS: CALCIUM ACETATE 667 MG TABLET PO SCH ×3 (09:09→19:06)
[2019-09-08] MEDS: FLUCONAZOLE 100MG TABLET PO SCH (09:09)
[2019-09-08] MEDS: FUROSEMIDE 40MG TABLET PO SCH ×3 (09:09→21:11)
[2019-09-08] MEDS ORDERED: METO25TA6 PO (13:59)
[2019-09-08] MEDS ORDERED: AMIO100T4 MT (14:15)
[2019-09-08] MEDS ORDERED: FURO80TA87 MT (14:32)
[2019-09-08] MEDS ORDERED: METOPROLOL TARTRATE 50MG TABLET PO SCH (21:00)
[2019-09-09] VITALS: BP 104/50
[2019-09-09 04:00] VITALS: BP 103/58
[2019-09-09] MEDS: HYDROCODONE/ACETAMINOPHEN 10/325MG TABLET PO PRN (04:23)
[2019-09-09 08:00] VITALS: BP 115/62
== END 2019-09-09 08:45 | disposition home or self-care (01) | DRG 194 ==
LOC: ER 12:30 → 6WST 15:14 → ENRESERV 23:17
PROVIDERS: ADMIT Internal Medicine; ATTEND Internal Medicine
PROC: 5A1D70Z Performance of Urinary Filtration, Intermittent, Less than 6 Hours Per Day (ICD-10-PCS; principal; 2019-09-02)
PROC: 5A1D70Z Performance of Urinary Filtration, Intermittent, Less than 6 Hours Per Day (ICD-10-PCS; 2019-09-03)
PROC: 5A1D70Z Performance of Urinary Filtration, Intermittent, Less than 6 Hours Per Day (ICD-10-PCS; 2019-09-04)
PROC: 5A1D70Z Performance of Urinary Filtration, Intermittent, Less than 6 Hours Per Day (ICD-10-PCS; 2019-09-05)
PROC: 5A1D70Z Performance of Urinary Filtration, Intermittent, Less than 6 Hours Per Day (ICD-10-PCS; 2019-09-06)
DX: I13.2 Hypertensive heart and chronic kidney disease with heart failure and with stage 5 chronic kidney disease, or end stage renal disease (principal); J96.00 Acute respiratory failure, unspecified whether with hypoxia or hypercapnia; I47.2 Ventricular tachycardia; D69.6 Thrombocytopenia, unspecified; B49 Unspecified mycosis; E11.22 Type 2 diabetes mellitus with diabetic chronic kidney disease; N18.6 End stage renal disease; Z95.2 Presence of prosthetic heart valve; E66.01 Morbid (severe) obesity due to excess calories; J44.1 Chronic obstructive pulmonary disease with (acute) exacerbation; D63.8 Anemia in other chronic diseases classified elsewhere; G47.33 Obstructive sleep apnea (adult) (pediatric); I35.0 Nonrheumatic aortic (valve) stenosis; I47.1 Supraventricular tachycardia; J45.909 Unspecified asthma, uncomplicated; I25.10 Atherosclerotic heart disease of native coronary artery without angina pectoris; M06.9 Rheumatoid arthritis, unspecified; E78.5 Hyperlipidemia, unspecified; I07.1 Rheumatic tricuspid insufficiency; L93.0 Discoid lupus erythematosus; M25.462 Effusion, left knee; N39.0 Urinary tract infection, site not specified; Z99.2 Dependence on renal dialysis; Z86.718 Personal history of other venous thrombosis and embolism; Z74.01 Bed confinement status; Z83.3 Family history of diabetes mellitus; Z88.5 Allergy status to narcotic agent; Z95.828 Presence of other vascular implants and grafts; Z88.6 Allergy status to analgesic agent; Z90.49 Acquired absence of other specified parts of digestive tract; Z79.899 Other long term (current) drug therapy; Z68.42 Body mass index [BMI] 45.0-49.9, adult; I50.33 Acute on chronic diastolic (congestive) heart failure
CPT/HCPCS: 36415; 71045; 74018; 76770; 76856; 76881; 80048; 80053; 80061; 81003; 82962; 83735; 83880; 84100; 84443; 84484; 85025; 87106; 93005; 93306; 93970; 94640; 96374; 99285; J0696; J1644; J1940; J2270; J2405